=== PATIENT | female | born 1970 | race Caucasian/White ===

== ENCOUNTER 2016-09-05 13:18 | Emergency (ER) | payer BC ==
[2016-09-05 13:34] VITALS: BP 122/83
--- NOTE | 2016-09-05 13:58 | UC ---
Knee Pain HPI - HPI Summary HPI Summary: LEFT KNEE PAIN X 2 WEEKS NO KNOWN INJURY , GETTING WORSE OVER THE PAST 5 DAYS + SWELLING, CATCHING AND CLICKING , NO ERYTHEMA, INCREASE PAIN WITH WALKING AND GOING UP THE STAIRS - History of Current Complaint Chief Complaint: UCLowerExtremity Stated Complaint: LEFT KNEE PAIN Time Seen by Provider: 09/05/16 13:24 Hx Obtained From: Patient Hx Last Menstrual Period: HAD THE NOVASURE PROCEDURE DONE ?: No Onset/Duration: Gradual Onset, Lasting Weeks - 2, Still Present Severity Initially: Moderate Severity Currently: Moderate Character: Aching Aggravating Factor(s): Movement, Weight Bearing, Prolonged Standing, Stairs Alleviating Factor(s): Rest Associated Signs And Symptoms: Positive: Swelling, Weakness. Negative: Redness , Bruising, Fever, Numbness, Tingling Able to Bear Weight: Yes - Allergies/Home Medications Allergies/Adverse Reactions: Allergies Allergy/AdvReac Type Severity Reaction Status Date / Time Codeine Allergy hives, Verified 09/05/16 13:25 swelling , nausea Home Medications: Home Medications Folic Acid TAB* [Folvite TAB*] 1 mg PO DAILY 09/05/16 [History Confirmed ] [place] Carbonate ER TAB* 450 mg PO DAILY 09/05/16 [History Confirmed 09/05/16] Methotrexate TAB* 6 tab PO Q7D 09/05/16 [History Confirmed 09/05/16] Naproxen TAB* [Naprosyn 250 mg TAB*] 500 mg PO Q8H PRN 09/05/16 [History Confirmed 09/05/16] PMH/Surg Hx/FS Hx/Imm Hx Previously Healthy: Yes - Surgical History Surgical History: Yes Surgery Procedure, Year, and Place: RIGHT TOTAL KNEE, HERNIA REPAIR, C-SECTIONS X'S 4. - Family History Known Family History: Negative: Diabetes - Social History Alcohol Use: None Substance Use Type: None Smoking Status (MU): Never Smoked Tobacco Review of Systems Constitutional: Negative Skin: Negative Eyes: Negative ENT: Negative Respiratory: Negative Cardiovascular: Negative All Other Systems Reviewed And Are Negative: Yes Physical Exam Triage Information Reviewed: Yes Appearance: Well-Appearing, No Pain Distress, Well-Nourished Vital Signs: Initial Vital Signs Temp 98.3 F 09/05/16 13:27 Pulse 74 09/05/16 13:27 Resp 18 09/05/16 13:27 BP 122/83 09/05/16 13:27 Pulse Ox 98 09/05/16 13:27 Vital Signs Reviewed: Yes Eye Exam: Normal Eyes: Positive: Conjunctiva Clear ENT: Positive: Normal ENT inspection, Hearing grossly normal, Pharynx normal Neck exam: Normal Neck: Positive: Supple, Nontender, No Lymphadenopathy Respiratory: Positive: Chest non-tender, Lungs clear, Normal breath sounds Cardiovascular: Positive: RRR, No Murmur, Pulses Normal Musculoskeletal: Positive: Other: - LEFT KNEE: + SWELLING, MILD EFFUSION , NO TENDERNESS, NO ERYTHEMA + PAIN WITH FLEXION AND EXTENSION, NORMAL LIGAMENTS + SUNIL ON LATERAL AND MEDIAL Knee Pain Course/Dx - Differential Dx/Diagnosis Provider Diagnoses: LEFT KNEE PAIN Discharge - Discharge Plan Condition: Stable Disposition: HOME Patient Education Materials: Knee Pain (ED) Referrals: Isaias POPE,Ancelmo Waller [Primary Care Provider] - Additional Instructions: PLEASE CALL YOUR ORTHOPEDIC DOCTOR AND FOLLOW UP WITH THEM FOR EVAL AND TX CONCERN ABOUT MENISCUS INJURY CONT. WITH IBUPROFEN / TYLENOL NEEDED FOR PAIN
--- NOTE | 2016-09-05 14:06 | RAD ---
HISTORY: Left knee pain COMPARISONS: None VIEWS: 4, Frontal, lateral, axial, and oblique views of the left knee FINDINGS: BONE DENSITY: Normal. BONES: There is no displaced fracture. JOINTS: There is mild tricompartmental osteoarthritis. There is no suprapatellar joint effusion or lipohemarthrosis. ALIGNMENT: There is no dislocation. SOFT TISSUES: Unremarkable. OTHER FINDINGS: None. IMPRESSION: NO ACUTE OSSEOUS INJURY. IF SYMPTOMS PERSIST, RECOMMEND REPEAT IMAGING.
== END 2016-09-05 14:24 | disposition home or self-care (01) ==
LOC: UCCORT 13:18
DX: M25.562 Pain in left knee (principal); Z88.5 Allergy status to narcotic agent
CPT/HCPCS: 99211; G0463